=== PATIENT | female | born 1995 | race African-American/Black ===

== ENCOUNTER 2017-01-19 14:56 | Emergency (ER) | payer SELFPAY ==
[2017-01-19 15:20] VITALS: BP 133/67; PULSE 111; BMI 35.4
[2017-01-19] MEDS ORDERED: ACETAMINOPHEN 500 MG TABLET (FP) PO ONE (15:29)
[2017-01-19] MEDS ORDERED: ACETAMINOPHEN 325 MG TABLET (FP) ONE (15:39)
--- NOTE | 2017-01-19 16:06 | PDOC ---
History of Present Illness - General Chief Complaint: Sore Throat Stated Complaint: SORE THROAT Time Seen by Provider: 01/19/17 15:29 History Source: Patient Exam Limitations: No Limitations - History of Present Illness Initial Comments: 01/19/17 16:06 CHIEF COMPLAINT: Throat pain HISTORY OF PRESENT ILLNESS: This is an otherwise healthy 22 year old female who presents for evaluation of subjective fever, throat pain/painful swallowing since Saturday. She denies cough, shortness of breath, abdominal pain n/v/d, or any other symptoms. Vital signs on arrival are notable for T 103 and P 111. REVIEW OF SYSTEMS: GENERAL/CONSTITUTIONAL: Subjective fevers/chills. No weakness. No weight change. HEAD, EYES, EARS, NOSE AND THROAT: Throat pain/painful swallowing. No ear pain. CARDIOVASCULAR: No chest pain or palpitations. RESPIRATORY: No cough, wheezing, or shortness of breath. GASTROINTESTINAL: No nausea, vomiting, diarrhea or constipation. GENITOURINARY: No dysuria, frequency, or change in urination. NEUROLOGIC: No headache, vertigo, loss of consciousness, or loss of sensation. ALLERGIC/IMMUNOLOGIC: No hives or skin allergy. No latex allergy. PHYSICAL EXAM: GENERAL: The patient is awake, alert, and fully oriented, in no acute distress. ENT: Tonsils 3+ and erythematous Uvula midline. No drooling, stridor, or hot potato voice. LUNGS: Clear to auscultation bilaterally. Normal excursion. No respiratory distress or use of accessory muscles. CV: RRR, S1/S2, no MRG. Cap refill < 2 sec. ABDOMEN: Soft, non-distended, non-tender. EXTREMITIES: Normal range of motion, no edema. NEUROLOGICAL: Normal speech, normal gait. CN II-XII grossly intact. PSYCH: Normal mood, normal affect. SKIN: Warm, dry, normal turgor, no rashes or lesions noted. Past History - Past Medical History Allergies/Adverse Reactions: Allergies Allergy/AdvReac Type Severity Reaction Status Date / Time No Known Allergies Allergy Verified 01/19/17 15:20 Home Medications: Ambulatory Orders No Home Medications 0 dose .ROUTE UTDICT 06/22/13 Anemia: No Asthma: No Cancer: No Cardiac Disorders: No CVA: No COPD: No CHF: No DVT: No Dementia: No Diabetes: No Dialysis: No GI Disorders: No Disorders: No HTN: No Hypercholesterolemia: No HIV: No Kidney Stones: No Liver Disease: No Psychiatric Problems: No Seizures: No Thyroid Disease: No Lung CA: No - Reproductive History (#): 1 Para: 0 - Psycho/Social/Smoking Cessation Hx Anxiety: No Suicidal Ideation: No Smoking Status: No Smoking History: Never smoked Number of Cigarettes Smoked Daily: 0 Information on smoking cessation initiated: No Hx Alcohol Use: No *Physical Exam - Vital Signs Last Vital Signs Temp Pulse Resp BP Pulse Ox 103 F H 111 H 18 133/67 99 01/19/17 15:17 01/19/17 15:17 01/19/17 15:17 01/19/17 15:17 01/19/17 15:17 ED Treatment Course - Medications Given in the ED: ED Medications Discontinued Medications Generic Name Dose Route Start Last Admin Trade Name Indraq PRN Reason Stop Dose Admin Acetaminophen 975 mg 01/19/17 15:29 01/19/17 15:40 Tylenol - PO 01/19/17 15:30 975 mg ONCE ONE Administration Medical Decision Making - Medical Decision Making 01/19/17 16:18 A/P: 22 year old female with fever and throat pain. -Rapid strep positive -Tylenol for fever and pain -Bicillin *DC/Admit/Observation/Transfer Diagnosis at time of Disposition: Strep throat - Discharge Dispostion Disposition: HOME Condition at time of disposition: Stable Admit: No - Referrals Referrals: Stevenson Alvarado MD [Staff Physician] - 1 week (Primary care) - Patient Instructions Printed Discharge Instructions: DI for Strep Throat Additional Instructions: -Rest and stay well-hydrated -Take ibuprofen as prescribed for pain and fever -You received a one-time dose of antibiotics -Return here if you are unable to swallow fluids, if you have any difficulty breathing, or if you have any other concerning symptoms - Post Discharge Activity Work/School Note: Back to Work
[2017-01-19] MEDS ORDERED: PENICILLIN G BENZATHINE 1,200,000 UNIT/2 ML PFS IM ONE (16:48)
[2017-01-19 16:53] VITALS: TEMP 101.7
[2017-01-19] MEDS ORDERED: IBUPROFEN 600 MG TABLET (FP) PO ONE ×2 (16:53→17:04)
[2017-01-19] MEDS ORDERED: PENICILLIN G BENZATHINE 2,400,000 UNIT/4 ML PFS ONE (16:56)
== END 2017-01-19 17:10 | disposition home or self-care (01) ==
LOC: JERFT 14:56
DX: J02.0 Streptococcal pharyngitis (principal); B95.0 Streptococcus, group A, as the cause of diseases classified elsewhere
CPT/HCPCS: 84703; 87070; 87077; 87430; 99281-25

== ENCOUNTER 2017-06-06 19:06 | Emergency (ER) | payer SELFPAY ==
--- NOTE | 2017-06-06 19:27 | PDOC ---
Rapid Medical Evaluation Time Seen by Provider: 06/06/17 19:22 Medical Evaluation: Allergies Allergy/AdvReac Type Severity Reaction Status Date / Time No Known Allergies Allergy Verified 01/19/17 15:20 06/06/17 19:26 Otherwise healthy 22 year old female presenting with back pain, one episode of vomiting, and chills/rigors. +nasal congestion T 100.4 (took Tylenol x 2 tabs 2pm) P 109 -UA/culture/ -Influenza swab
[2017-06-06 19:34] VITALS: BP 110/58; PULSE 109; TEMP 100.4; BMI 33.6
[2017-06-06 19:57] LABS: URINE APPEARANCE CLOUDY; URINE BILIRUBIN NEGATIVE (NEGATIVE); URINE BLOOD 2+ (NEGATIVE); URINE COLOR YELLOW; URINE GLUCOSE (UA) NEGATIVE (NEGATIVE); URINE KETONE NEGATIVE (NEGATIVE); URINE NITRITE NEGATIVE (NEGATIVE); URINE UROBILINOGEN NEGATIVE mg/dL (0.2-1.0)
[2017-06-06 20:01] LABS: URINE LEUK ESTERASE 3+ (NEGATIVE); URINE PROTEIN 1+ (NEGATIVE)
[2017-06-06 20:02] LABS: EPI CELLS MODERATE /HPF (FEW)
[2017-06-06] MEDS ORDERED: KETOROLAC TROMETHAMINE 60 MG/2 ML VIAL IM ONE (20:05)
[2017-06-06] MEDS ORDERED: KETOROLAC TROMETHAMINE 60 MG/2 ML VIAL ONE (20:07)
--- NOTE | 2017-06-06 20:13 | PDOC ---
History of Present Illness - General Chief Complaint: Back Pain Stated Complaint: BACK PAIN Time Seen by Provider: 06/06/17 19:22 History Source: Patient Exam Limitations: No Limitations - History of Present Illness Initial Comments: 06/06/17 20:09 22 yr female with chills and fever started today, low back pain for one week with urinary urgency and frequency. no vag discharge, LMP one month ago. no abd pain no medial history Severity: reports: mild Past History - Past Medical History Allergies/Adverse Reactions: Allergies Allergy/AdvReac Type Severity Reaction Status Date / Time No Known Allergies Allergy Verified 06/06/17 19:26 Home Medications: Ambulatory Orders No Home Medications 0 dose .ROUTE UTDICT 06/22/13 Cephalexin [Keflex] 500 mg PO TID #30 capsule 06/06/17 Ondansetron [Zofran Odt -] 4 mg SL TID PRN #12 od.tablet 06/06/17 Anemia: No Asthma: No Cancer: No Cardiac Disorders: No CVA: No COPD: No CHF: No DVT: No Dementia: No Diabetes: No Dialysis: No GI Disorders: No Disorders: No HTN: No Hypercholesterolemia: No Kidney Stones: No Liver Disease: No Psychiatric Problems: No Seizures: No Thyroid Disease: No Lung CA: No - Reproductive History (#): 1 Para: 0 - Suicide/Smoking/Psychosocial Hx Smoking Status: No Smoking History: Never smoked Have you smoked in the past 12 months: No Number of Cigarettes Smoked Daily: 0 Information on smoking cessation initiated: No Hx Alcohol Use: No Drug/Substance Use Hx: No Substance Use Type: None Trauma Specific PMHX - Complaint Specific PMHX Arthritis: No Back Injury: No Neck Injury: No Hx Sacro Iliac Joint Dysfunction: No Review of Systems - Review of Systems Able to Perform ROS?: Yes Is the patient limited Moldovan proficient: No Constitutional: Yes: Symptoms Reported, Chills : Yes: Symptoms Reported *Physical Exam - Vital Signs Last Vital Signs Temp Pulse Resp BP Pulse Ox 100.4 F H 109 H 18 110/58 100 06/06/17 19:24 06/06/17 19:24 06/06/17 19:24 06/06/17 19:24 06/06/17 19:24 - Physical Exam General Appearance: Yes: Nourished, Appropriately Dressed HEENT: positive: EOMI, IQRA. negative: Pharyngeal Erythema Neck: positive: Supple. negative: Tender, Lymphadenopathy (R), Lymphadenopathy (L) Respiratory/Chest: positive: Lungs Clear, Normal Breath Sounds Cardiovascular: positive: Regular Rhythm, Regular Rate Gastrointestinal/Abdominal: positive: Normal Bowel Sounds, Soft. negative: Tender Musculoskeletal: positive: Normal Inspection. 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 NML intact, Fully Oriented, Alert, Normal Mood/ Affect, Normal Response ED Treatment Course - ADDITIONAL ORDERS Additional order review: Laboratory Results 06/06/17 06/06/17 19:00 19:00 Urine Color Yellow Urine Appearance Cloudy Urine pH 5.0 Ur Specific Cope 1.014 Urine Protein 1+ H Urine Glucose (UA) Negative Urine Ketones Negative Urine Blood 2+ H Urine Nitrite Negative Urine Bilirubin Negative Urine Urobilinogen Negative Ur Leukocyte Esterase 3+ H Urine WBC (Auto) 357 Urine RBC (Auto) 4 Ur Epithelial Cells Moderate Urine HCG, Qual Negative Medical Decision Making - Medical Decision Making 06/07/17 18:51 cc: urinary urgency and frequency with chills and low back pain neg flank pain neg vomiting pt is able to tolerate po *DC/Admit/Observation/Transfer Diagnosis at time of Disposition: UTI (lower urinary tract infection) - Discharge Dispostion Disposition: HOME Condition at time of disposition: Good - Prescriptions Prescriptions: Cephalexin [Keflex] 500 mg PO TID #30 capsule Ondansetron [Zofran Odt -] 4 mg SL TID PRN #12 od.tablet PRN Reason: Nausea And/Or Vomiting - Referrals Referrals: Mirza Modi MD [Staff Physician] - - Patient Instructions Additional Instructions: drink at least 2 liters of water a day take the zofran for nausea or vomiting take the kefelx as directed for 10 days return if you are unable to keep down the medication return if any worsening fever 103 or higher or any other concerns return to ER 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
== END 2017-06-06 20:21 | disposition home or self-care (01) ==
LOC: JERFT 19:06
PROC: 3E0333Z Introduction of Anti-inflammatory into Peripheral Vein, Percutaneous Approach (ICD-10-PCS; principal; 2017-06-06)
DX: N39.0 Urinary tract infection, site not specified (principal)
CPT/HCPCS: 81003; 81015; 84703; 87086; 87186; 87804; 99281-25